=== PATIENT | female | born 2000 | race African-American/Black ===

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

== ENCOUNTER 2022-02-20 13:45 | Emergency (ER) | payer OTHER ==
[2022-02-20 14:23] LABS: Hemoglobin 12.2 g/dL (12.0-16.0); Mean Corpuscular HGB CONC 32.5 g/dL (32.0-36.0); Mean Corpuscular Hemoglobin 29.7 pg (25.0-35.0); Mean Corpuscular Volume 91.4 fL (78.0-98.0); Mean Platelet Volume 7.2 fL (7.4-10.4); Platelet Count 310 thou/uL (130-400); RBC Distribution Width 13.6 % (11.5-14.5); White Blood Cell (WBC) Count 4.7 thou/uL (4.8-10.8)
[2022-02-20 14:42] LABS: ALT (SGPT) 11 U/L (8-55); AST (SGOT) 17 U/L (5-30); Alkaline Phosphatase 73 U/L (40-100); Anion Gap 15 mmol/L (10-20); BUN (Urea Nitrogen) 7 mg/dL (8.4-21.0); Bilirubin, Total 0.3 mg/dL (0.2-1.2); Calc. Creatinine Clearance 0 mL/min (70-130); Calcium 9.9 mg/dL (7.8-10.44); Carbon Dioxide 22 mmol/L (22-29); Chloride 107 mmol/L (98-107); Estimated GFR 114; Globulin 3.4 g/dL (2.4-3.5); Glucose 87 mg/dL (70-105); Lipase 41 U/L (8-78); Potassium 3.7 mmol/L (3.5-5.1); Protein, Total 8.4 g/dL (6.0-8.3); Sodium 140 mmol/L (136-145)
[2022-02-20 14:51] LABS: BHCG - Serum Negative (NEGATIVE); Pregs Control Background? CLEAR/WHITE (CLR/WHITE); Pregs Control Bar Appear? YES (CONTROL BAR)
[2022-02-20 15:04] LABS: Band 1 % (5-11); Eosinophils 2 % (0-10); Lymphocytes 61 % (28-48); MDiff Complete? YES; Monocytes 7 % (0-4); Neutrophil 28 % (31-61); Platelet Morphology Comment Appears Adequate; RBC Morphology Normal; Reactive Lymphocytes 1 % (0-10)
[2022-02-20] MEDS ORDERED: Ibuprofen 200 MG TAB ONE (15:21)
[2022-02-20] MEDS ORDERED: Acetaminophen 325 MG TAB ONE (15:21)
[2022-02-20 15:49] LABS: Bacteria/HPF None Seen HPF (None Seen); Bilirubin Negative (Negative); Blood, Urine 3+ (Negative); Clarity Clear (Clear); Glucose, Urine (Dipstick) Normal (Negative); Ketone, Urine Trace mg/dL (Negative); Leukocyte 75 Leu/uL (Negative); Nitrite Negative (Negative); Protein, Urine (Dipstick) 70 mg/dL (Neg-Trace); RBC/HPF Greater than 50 HPF (0-3); Specific Gravity, Urine 1.037 (1.002-1.036); Squamous Epithelial 0-3 HPF (0-3)
[2022-02-20] MEDS ORDERED: cefTRIAXone\\ROCEPHIN 500 MG VIAL ONE (17:57)
[2022-02-20] MEDS ORDERED: Lidocaine 1% PF 5 ML VIAL ONE (17:57)
[2022-02-21 12:38] LABS: Chlam.trachomatis by PCR,Urine Not Detected (NotDetected)
== END 2022-02-20 18:10 | disposition home or self-care (01) ==
LOC: ERS 13:45
DX: R30.0 Dysuria (principal); K21.9 Gastro-esophageal reflux disease without esophagitis; Z20.2 Contact with and (suspected) exposure to infections with a predominantly sexual mode of transmission
CPT/HCPCS: 36415; 80053; 81003; 81015; 83690; 84703; 85025; 87480; 87491; 87510; 87591; 87660; 96372; 99284; J0696

== ENCOUNTER 2022-07-17 18:34 | Emergency (ER) | payer OTHER ==
[2022-07-17] MEDS ORDERED: Acetaminophen 500 MG TAB ONE (20:25)
[2022-07-17] MEDS ORDERED: Ondansetron ODT 4 MG TAB ONE (20:25)
[2022-07-17 21:28] LABS: SARS-CoV-2 NAA Rapid Test Not Detected (NotDetected)
[2022-07-17 21:40] LABS: #Lymphocytes 0.6 thou/uL (1.20-3.40); #Monocytes 0.1 thou/uL (0.11-0.59); #Neutrophils 4.4 thou/uL (1.40-6.50); %Eosinophils 0.1 % (0.0-10.0); %Monocytes 1.8 % (0.0-4.0); %Neutrophils 87.1 % (31.0-61.0); Hemoglobin 11.7 g/dL (12.0-16.0); Mean Corpuscular HGB CONC 32.6 g/dL (32.0-36.0); Mean Corpuscular Hemoglobin 30.3 pg (25.0-35.0); Mean Corpuscular Volume 93.1 fl (78.0-98.0); Mean Platelet Volume 7.1 fL (7.4-10.4); Platelet Count 202 10x3/uL (130-400); RBC Distribution Width 11.7 % (11.5-14.5); Red Blood Cell (RBC) Count 3.86 mill/uL (4.00-5.20); White Blood Cell (WBC) Count 5.1 10x3/uL (4.8-10.8)
[2022-07-17 21:56] LABS: BHCG - Serum Negative (NEGATIVE); Pregs Control Background? CLEAR/WHITE (CLR/WHITE); Pregs Control Bar Appear? YES (CONTROL BAR)
[2022-07-17 21:59] LABS: ALT (SGPT) 8 U/L (8-55); AST (SGOT) 16 U/L (5-30); Albumin 4.2 g/dL (3.5-5.0); Alkaline Phosphatase 54 U/L (40-100); Anion Gap 14 mmol/L (10-20); BUN (Urea Nitrogen) 7 mg/dL (8.4-21.0); Bilirubin, Total 0.6 mg/dL (0.2-1.2); Calc. Creatinine Clearance 0 mL/min (70-130); Calcium 8.7 mg/dL (7.8-10.44); Carbon Dioxide 21 mmol/L (22-29); Chloride 104 mmol/L (98-107); Estimated GFR 114; Globulin 2.9 g/dL (2.4-3.5); Glucose 92 mg/dL (70-105); Potassium 3.2 mmol/L (3.5-5.1); Protein, Total 7.1 g/dL (6.0-8.3); Sodium 136 mmol/L (136-145)
[2022-07-17] MEDS ORDERED: Ketorolac Tromethamine 30 MG/ML VIAL ONE (22:00)
[2022-07-17] MEDS ORDERED: Dicyclomine 20 MG/2 ML VIAL ONE (22:00)
[2022-07-17 22:34] LABS: Bacteria/HPF None Seen HPF (None Seen); Bilirubin Negative (Negative); Blood, Urine Negative (Negative); Clarity Clear (Clear); Glucose, Urine (Dipstick) Normal (Negative); Ketone, Urine Trace mg/dL (Negative); Leukocyte 75 Leu/uL (Negative); Nitrite Negative (Negative); Protein, Urine (Dipstick) 20 mg/dL (Neg-Trace); RBC/HPF 0-3 HPF (0-3); Squamous Epithelial 0-3 HPF (0-3); Urobilinogen Normal mg/dL (Less than 2); pH, Urine 5.5 (5.0-9.0)
== END 2022-07-17 23:22 | disposition home or self-care (01) ==
LOC: ERS 18:34
DX: J11.1 Influenza due to unidentified influenza virus with other respiratory manifestations (principal); K21.9 Gastro-esophageal reflux disease without esophagitis; Z20.822 Contact with and (suspected) exposure to COVID-19
CPT/HCPCS: 36415; 80053; 81003; 81015; 84703; 85025; 93005; 96361; 96372; 96374; J1885; Q0162

== ENCOUNTER 2024-05-25 13:14 | Emergency (ER) | payer SELFPAY ==
[2024-05-25 13:58] LABS: Bacteria/HPF None Seen HPF (None Seen); Bilirubin Negative (Negative); Blood, Urine 1+ (Negative); CAUTI Indications for Culture Dysuria,urgency,freq; Clarity Clear (Clear); Glucose, Urine (Dipstick) Normal (Negative); Ketone, Urine Negative (Negative); Leukocyte 75 Leu/uL (Negative); Nitrite Negative (Negative); Pregnancy Test - Urine (BHCG) Negative (Negative); Pregu Control Background? CLEAR/WHITE (CLR/WHITE); Pregu Control Bar Appear? YES (CONTROL BAR); Protein, Urine (Dipstick) 50 mg/dL (Neg-Trace); RBC/HPF 0-3 HPF (0-3); Specific Gravity 1.027 (1.002-1.036); Specific Gravity, Urine 1.027 (1.002-1.036); Urobilinogen Normal mg/dL (Less than 2); WBC/HPF 21-50 HPF (0-3); pH, Urine 5.5 (5.0-9.0)
[2024-05-25 14:02] LABS: Urine Culture Reflex Yes Yes
[2024-05-25 14:41] LABS: #Basophils Less than 0.03 10x3/uL (0.0-0.2); %Basophils 0.2 % (0.0-1.0); %Eosinophils 0.6 % (0.0-10.0); %Lymphocytes 52.3 % (21.0-51.0); %Monocytes 6.5 % (0.0-10.0); %Neutrophils 40.2 % (42.0-75.0); Hematocrit 33.2 % (36.0-47.0); Hemoglobin 10.1 g/dL (12.0-16.0); Mean Corpuscular HGB CONC 30.4 g/dL (32.0-36.0); Mean Corpuscular Hemoglobin 25.9 pg (27.0-31.0); Mean Corpuscular Volume 85.1 fL (78.0-98.0); Mean Platelet Volume 9.4 fL (7.4-10.4); Platelet Count 357 10x3/uL (130-400); RBC Distribution Width 14.7 % (11.5-14.5)
[2024-05-25 15:16] LABS: ALT (SGPT) 14 U/L (8-55); AST (SGOT) 22 U/L (5-34); Albumin 4.5 g/dL (3.5-5.0); Alkaline Phosphatase 61 U/L (40-110); Anion Gap 14 mmol/L (10-20); BUN (Urea Nitrogen) 9 mg/dL (7.0-18.7); Bilirubin, Total 0.4 mg/dL (0.2-1.2); Calc. Creatinine Clearance 0 mL/min (70-130); Calcium 9.4 mg/dL (7.8-10.44); Carbon Dioxide 21 mmol/L (22-29); Chloride 106 mmol/L (98-107); Estimated GFR 116; Globulin 4.1 g/dL (2.4-3.5); Glucose 75 mg/dL (70-105); Lipase 29 U/L (8-78); Potassium 3.6 mmol/L (3.5-5.1); Protein, Total 8.6 g/dL (6.0-8.3); Sodium 137 mmol/L (136-145)
[2024-05-25] MEDS ORDERED: Ketorolac Tromethamine 30 MG (1 mL) VIAL ONE (16:41)
[2024-05-25] MEDS ORDERED: cefTRIAXone (ROCEPHIN) 2 GM VIAL ONE (16:41)
[2024-05-25] MEDS ORDERED: Lidocaine 1% MPF 2 ML VIAL ONE (16:41)
== END 2024-05-25 18:56 | disposition home or self-care (01) ==
LOC: ERS 13:14
DX: N10 Acute pyelonephritis (principal)
CPT/HCPCS: 36415; 76770; 80053; 81001; 81025; 83690; 85025; 87086; J0696; J1885